=== PATIENT | female | born 1975 | race Hispanic/Latino ===

== ENCOUNTER 2017-09-21 22:11 | Emergency (ER) | payer OTHER ==
[2017-09-21] MEDS ORDERED: SODIUM CHLORIDE 0.9% 1000ML 1,000 ML IV ONE ×2 (22:45→23:37)
[2017-09-21 22:50] LABS: APPEARANCE,URINE Cloudy (CLEAR); BILIRUBIN,URINE Negative (NEGATIVE); COLOR,URINE Dark Yellow (YELLOW); GLUCOSE, URINE (UA) Negative (NEGATIVE); KETONES,URINE Trace mg/dL (NEGATIVE); LEUKOCYTE ESTERASE ,URINE Negative (NEGATIVE); NITRATE,URINE Positive (NEGATIVE); OCCULT BLOOD,URINE Moderate (NEGATIVE); PH,URINE 5.5 (5.0-8.0); PROTEIN,URINE Negative (NEGATIVE)
[2017-09-21 22:53] LABS: HCG,QUAL RESULT NEGATIVE (NEGATIVE)
[2017-09-21 22:56] LABS: BACTERIA,URINE Many /HPF (None Seen); SQUAMOUS EPITHELIAL CELL,UR Few /HPF (0-2); WBC,URINE 0-1 /HPF (0-1)
[2017-09-21] MEDS ORDERED: CEFTRIAXONE SODIUM 1 GM ONE (23:03)
[2017-09-21] MEDS ORDERED: KETOROLAC TROMETHAMINE 30MG/ML ONE (23:04)
[2017-09-21] MEDS ORDERED: SODIUM CHLORIDE 0.9% 50 ML IV ONE (23:05)
[2017-09-21 23:10] LABS: BASOPHILS % (AUTO) 0.5 % (0.0-5.0); HEMATOCRIT 35.5 % (36-48); LYMPHOCYTES % (AUTO) 40.9 % (21.0-51.0); MEAN CORPUSCULAR HEMOGLOBIN 31.1 pg (27.0-33.0); MEAN CORPUSCULAR HGB CONC 34.1 g/dL (32.0-36.0); MEAN CORPUSCULAR VOLUME 91.1 fL (79-99); MONOCYTES % (AUTO) 8.9 % (3.0-13.0); NEUTROPHILS % (AUTO) 47.7 % (40.0-77.0); PLATELET COUNT (AUTO) 251 K/uL (130-400); RED BLOOD CELL COUNT(AUTO) 3.89 MIL/uL (4.00-5.50); RED CELL DISTRIBUTION WIDTH 13.2 % (11.0-15.5); WHITE BLOOD COUNT (AUTO) 8.4 K/uL (4.8-10.8)
[2017-09-21 23:21] LABS: CREATININE 0.9 mg/dL (0.5-1.5); POTASSIUM 3.7 mmol/L (3.5-5.1)
[2017-09-21 23:26] LABS: ALBUMIN 3.8 g/dL (3.5-5.0); BILIRUBIN,TOTAL 0.3 mg/dL (0.2-1.0); TOTAL PROTEIN, SERUM 7.3 g/dL (6.0-8.3)
== END 2017-09-22 00:57 | disposition home or self-care (01) ==
LOC: EDH 22:11
DX: N10 Acute pyelonephritis (principal); R11.2 Nausea with vomiting, unspecified; Z72.0 Tobacco use
CPT/HCPCS: 36415; 80053; 81001; 81025; 85025; 96361; 96374; 96375; 99285; J0696; J1885; J7030 ×2

== ENCOUNTER 2020-09-03 10:44 | Emergency (ER) | payer SELFPAY ==
[~2020-09-03] VITALS: Ht 154.9 cm; Wt 80.7 kg
[2020-09-03 11:39] VITALS: BP 111/76
[2020-09-03 12:43] VITALS: BP 124/68
[2020-09-03] MEDS ORDERED: HYDROCODONE/ACETAMINOPHEN 5/325 MG TAB PO ONE (12:45)
[2020-09-03] MEDS ORDERED: KETOROLAC 30MG VIAL (30MG/ML) IM SCH (12:45)
[2020-09-03] MEDS ORDERED: CLINDAMYCIN HCL 150 MG CAP PO SCH (12:45)
[2020-09-03 14:03] VITALS: BP 124/75
[2020-09-03 15:40] VITALS: BP 124/73
[2020-09-03] MEDS ORDERED: ACET1TAB25 PO (16:28)
[2020-09-03] MEDS ORDERED: CLIN150C10 PO (16:28)
== END 2020-09-03 16:33 | disposition home or self-care (01) ==
LOC: EDH 10:44
DX: K04.7 Periapical abscess without sinus (principal); R11.10 Vomiting, unspecified; Z79.899 Other long term (current) drug therapy
CPT/HCPCS: 96372; 99285; J1885

== ENCOUNTER 2022-06-27 15:59 | Emergency (ER) | payer OTHER ==
[~2022-06-27] VITALS: Ht 154.9 cm; Wt 99.8 kg
[~2022-06-27 15:59] MED LIST: ACET-2079 PO; CLIN-116 PO
[2022-06-27 16:23] LABS: BASOPHILS % (AUTO) 0.5 % (0.0-5.0); EOSINOPHILS % (AUTO) 2.4 % (0.0-8.0); LYMPHOCYTES % (AUTO) 45.2 % (21.0-51.0); MEAN CORPUSCULAR HEMOGLOBIN 29.7 pg (27.0-33.0); MEAN CORPUSCULAR HGB CONC 33.1 g/dL (32.0-36.0); MEAN CORPUSCULAR VOLUME 89.7 fL (79-99); MONOCYTES % (AUTO) 9.7 % (3.0-13.0); PLATELET COUNT (AUTO) 238 K/uL (130-400); RED CELL DISTRIBUTION WIDTH 12.9 % (11.0-15.5); WHITE BLOOD COUNT (AUTO) 8.3 K/uL (4.8-10.8)
[2022-06-27 16:32] LABS: APPEARANCE,URINE CLOUDY (CLEAR); BILIRUBIN,URINE NEGATIVE (NEGATIVE); COLOR,URINE YELLOW (YELLOW); GLUCOSE, URINE (UA) NEGATIVE (NEGATIVE); KETONES,URINE NEGATIVE (NEGATIVE); LEUKOCYTE ESTERASE ,URINE 25 Leu/uL (NEGATIVE); NITRATE,URINE NEGATIVE (NEGATIVE); OCCULT BLOOD,URINE SMALL (NEGATIVE); PROTEIN,URINE NEGATIVE (NEGATIVE); UROBILINOGEN,URINE 3 mg/dL (0.2-1.0)
[2022-06-27 16:47] LABS: BACTERIA,URINE RARE /HPF (None Seen); SQUAMOUS EPITHELIAL CELL,UR FEW /HPF (0-2); YEAST,URINE BUDDING MOD /HPF (None Seen)
[2022-06-27 16:48] LABS: CREATININE 0.7 mg/dL (0.5-1.5); POTASSIUM 3.6 mmol/L (3.5-5.1)
[2022-06-27 16:51] LABS: ALBUMIN 3.9 g/dL (3.5-5.0); TOTAL PROTEIN, SERUM 7.5 g/dL (6.0-8.3)
[2022-06-27 17:05] LABS: HCG,QUALITATIVE URINE NEGATIVE (NEGATIVE)
[2022-06-27 17:13] VITALS: BP 115/85
[2022-06-27] MEDS ORDERED: KETOROLAC 30MG VIAL (30MG/ML) IM ONE (17:30)
[2022-06-27] MEDS ORDERED: TRAM50TA4 PO (18:09)
== END 2022-06-27 18:14 | disposition home or self-care (01) ==
LOC: EDH 15:59
DX: R10.9 Unspecified abdominal pain (principal); R42 Dizziness and giddiness; Z79.2 Long term (current) use of antibiotics; Z79.899 Other long term (current) drug therapy
CPT/HCPCS: 99285; 74176; 80053; 85025; 87088; 81001; 81025; 36415; 96372; J1885

== ENCOUNTER 2022-11-11 16:53 | Emergency (ER) | payer MEDICAID, OTHER ==
[~2022-11-11] VITALS: Ht 154.9 cm; Wt 80.7 kg
[~2022-11-11 16:53] MED LIST changes: +TRAM50TA4 PO
[2022-11-11 18:05] LABS: BASOPHILS # (AUTO) 0.03 K/uL (0.00-0.20); BASOPHILS % (AUTO) 0.3 % (0.0-5.0); EOSINOPHILS # (AUTO) 0.13 K/uL (0.00-0.70); EOSINOPHILS % (AUTO) 1.3 % (0.0-8.0); HEMATOCRIT 36.9 % (36-48); IMMATURE GRANULOCYTE ABSOLUTE 0.02 K/uL (0-1); LYMPHOCYTES # (AUTO) 4.2 K/uL (1.0-4.8); LYMPHOCYTES % (AUTO) 40.9 % (21.0-51.0); MEAN CORPUSCULAR HEMOGLOBIN 29.9 pg (27.0-33.0); MEAN CORPUSCULAR HGB CONC 34.1 g/dL (32.0-36.0); MEAN CORPUSCULAR VOLUME 87.6 fL (79-99); MONOCYTES # (AUTO) 0.7 K/uL (0.1-1.0); MONOCYTES % (AUTO) 6.6 % (3.0-13.0); NEUTROPHILS # (AUTO) 5.3 K/uL (1.8-7.7); NEUTROPHILS % (AUTO) 50.7 % (40.0-77.0); PLATELET COUNT (AUTO) 261 K/uL (130-400); RED BLOOD CELL COUNT(AUTO) 4.21 MIL/uL (4.00-5.50); RED CELL DISTRIBUTION WIDTH 12.7 % (11.0-15.5); WHITE BLOOD COUNT (AUTO) 10.4 K/uL (4.8-10.8)
[2022-11-11 18:07] LABS: APPEARANCE,URINE CLEAR (CLEAR); BILIRUBIN,URINE NEGATIVE (NEGATIVE); COLOR,URINE LIGHT-YELLOW (YELLOW); GLUCOSE, URINE (UA) NEGATIVE (NEGATIVE); KETONES,URINE NEGATIVE (NEGATIVE); LEUKOCYTE ESTERASE ,URINE NEGATIVE Leu/uL (NEGATIVE); NITRATE,URINE NEGATIVE (NEGATIVE); OCCULT BLOOD,URINE LARGE (NEGATIVE); PROTEIN,URINE NEGATIVE (NEGATIVE); UROBILINOGEN,URINE 0.2 mg/dL (0.2-1.0)
[2022-11-11 18:09] LABS: ADD UA MICROSCOPIC YES
[2022-11-11 18:11] LABS: BACTERIA,URINE RARE /HPF (None Seen); HCG,QUALITATIVE URINE NEGATIVE (NEGATIVE); SQUAMOUS EPITHELIAL CELL,UR RARE /HPF (0-2); UNCLASSIFIED CRYSTAL 3 /HPF (None Seen); YEAST,URINE BUDDING FEW /HPF (None Seen)
[2022-11-11 18:14] LABS: CREATININE 0.8 mg/dL (0.5-1.5); POTASSIUM 3.5 mmol/L (3.5-5.1)
[2022-11-11 18:19] LABS: ALBUMIN 4.2 g/dL (3.5-5.0); BILIRUBIN,TOTAL 0.5 mg/dL (0.2-1.0); TOTAL PROTEIN, SERUM 8.2 g/dL (6.0-8.3)
[2022-11-11] MEDS ORDERED: MACR100 PO (20:02)
[2022-11-11] MEDS ORDERED: HYDR-3421 PO (20:02)
[2022-11-11 21:10] VITALS: BP 124/68; PULSE 72; RESP 18; O2SAT 100
== END 2022-11-11 21:15 | disposition home or self-care (01) ==
LOC: EDH 16:53
DX: F41.9 Anxiety disorder, unspecified (principal); N39.0 Urinary tract infection, site not specified; Z79.899 Other long term (current) drug therapy; Z98.890 Other specified postprocedural states
CPT/HCPCS: 36415; 71045; 80053; 81001; 81025; 84484; 85025; 93005

== ENCOUNTER 2023-05-19 20:42 | Emergency (ER) | payer BC, OTHER ==
[~2023-05-19] VITALS: Ht 154.9 cm; Wt 104.3 kg
[~2023-05-19 20:42] MED LIST changes: +HYDR-3421 PO; +IBUP-2070 PO; +MACR100 PO
[2023-05-19 21:12] LABS: BASOPHILS # (AUTO) 0.04 K/uL (0.00-0.20); BASOPHILS % (AUTO) 0.3 % (0.0-5.0); EOSINOPHILS # (AUTO) 0.12 K/uL (0.00-0.70); HEMATOCRIT 35.1 % (36-48); IMMATURE GRANULOCYTE ABSOLUTE 0.03 K/uL (0-1); LYMPHOCYTES % (AUTO) 34.2 % (21.0-51.0); MEAN CORPUSCULAR HEMOGLOBIN 30.6 pg (27.0-33.0); MEAN CORPUSCULAR HGB CONC 35.3 g/dL (32.0-36.0); MEAN CORPUSCULAR VOLUME 86.7 fL (79-99); MONOCYTES # (AUTO) 0.7 K/uL (0.1-1.0); NEUTROPHILS # (AUTO) 6.8 K/uL (1.8-7.7); NEUTROPHILS % (AUTO) 58.2 % (40.0-77.0); PLATELET COUNT (AUTO) 269 K/uL (130-400); RED BLOOD CELL COUNT(AUTO) 4.05 MIL/uL (4.00-5.50); RED CELL DISTRIBUTION WIDTH 12.5 % (11.0-15.5); WHITE BLOOD COUNT (AUTO) 11.7 K/uL (4.8-10.8)
[2023-05-19] MEDS: LACTATED RINGERS 1000ML 1,000 ML IV ONE (21:23)
[2023-05-19] MEDS: KETOROLAC 30MG VIAL (30MG/ML) IVP ONE (21:23)
[2023-05-19] MEDS: ONDANSETRON 4MG INJ IVP ONE (21:23)
[2023-05-19] MEDS: MORPHINE 4 MG SYG IVP ONE (21:23)
[2023-05-19 21:24] LABS: CREATININE 0.9 mg/dL (0.5-1.5); POTASSIUM 3.4 mmol/L (3.5-5.1)
[2023-05-19 21:34] LABS: BILIRUBIN,TOTAL 0.6 mg/dL (0.2-1.0); TOTAL PROTEIN, SERUM 7.9 g/dL (6.0-8.3)
[2023-05-19 23:05] LABS: APPEARANCE,URINE CLEAR (CLEAR); BILIRUBIN,URINE NEGATIVE (NEGATIVE); COLOR,URINE LIGHT-YELLOW (YELLOW); GLUCOSE, URINE (UA) NEGATIVE (NEGATIVE); KETONES,URINE 10 mg/dL (NEGATIVE); LEUKOCYTE ESTERASE ,URINE NEGATIVE Leu/uL (NEGATIVE); NITRATE,URINE NEGATIVE (NEGATIVE); PROTEIN,URINE NEGATIVE (NEGATIVE); UROBILINOGEN,URINE 0.2 mg/dL (0.2-1.0)
[2023-05-19 23:09] LABS: ADD UA MICROSCOPIC YES
[2023-05-19 23:11] LABS: BACTERIA,URINE RARE /HPF (None Seen); MUCUS,URINE RARE LPF (None Seen); SQUAMOUS EPITHELIAL CELL,UR FEW /HPF (0-2)
[2023-05-19] MEDS ORDERED: IOHEXOL-350 75 ML VIAL IV ONE (23:13)
[2023-05-20] MEDS ORDERED: OMEP40CA21 PO (00:18)
[2023-05-20] MEDS ORDERED: DICY20TA2 PO (00:18)
[2023-05-20] MEDS ORDERED: ONDA-104 PO (00:19)
[2023-05-20 00:59] VITALS: BP 121/73; PULSE 60; RESP 18; O2SAT 98
== END 2023-05-20 01:00 | disposition home or self-care (01) ==
LOC: EDH 20:42
DX: R10.9 Unspecified abdominal pain (principal); R06.02 Shortness of breath; F41.9 Anxiety disorder, unspecified; Z79.899 Other long term (current) drug therapy; Z98.890 Other specified postprocedural states
CPT/HCPCS: 99285; 74177; 96374; 96375; 82150; 82550; 84484; 80053; 84702; 83690; 85025; 85378; 81001; 36415; 93005; J7120; J2405; J2270; J1885; Q9967

== ENCOUNTER 2023-09-25 18:47 | Emergency (ER) | payer BC, OTHER ==
[~2023-09-25] VITALS: Ht 154.9 cm; Wt 124.7 kg
[~2023-09-25 18:47] MED LIST changes: +DICY20TA2 PO; +OMEP40CA21 PO; +ONDA-104 PO
[2023-09-25 19:54] LABS: BASOPHILS # (AUTO) 0.05 K/uL (0.00-0.20); BASOPHILS % (AUTO) 0.7 % (0.0-5.0); EOSINOPHILS # (AUTO) 0.19 K/uL (0.00-0.70); EOSINOPHILS % (AUTO) 2.6 % (0.0-8.0); HEMATOCRIT 34.4 % (36-48); IMMATURE GRANULOCYTE ABSOLUTE 0.02 K/uL (0-1); LYMPHOCYTES # (AUTO) 3.2 K/uL (1.0-4.8); LYMPHOCYTES % (AUTO) 43.7 % (21.0-51.0); MEAN CORPUSCULAR HEMOGLOBIN 30.1 pg (27.0-33.0); MEAN CORPUSCULAR HGB CONC 33.7 g/dL (32.0-36.0); MEAN CORPUSCULAR VOLUME 89.4 fL (79-99); MONOCYTES # (AUTO) 0.6 K/uL (0.1-1.0); MONOCYTES % (AUTO) 8.5 % (3.0-13.0); NEUTROPHILS # (AUTO) 3.3 K/uL (1.8-7.7); NEUTROPHILS % (AUTO) 44.2 % (40.0-77.0); PLATELET COUNT (AUTO) 244 K/uL (130-400); RED BLOOD CELL COUNT(AUTO) 3.85 MIL/uL (4.00-5.50); RED CELL DISTRIBUTION WIDTH 12.7 % (11.0-15.5); WHITE BLOOD COUNT (AUTO) 7.4 K/uL (4.8-10.8)
[2023-09-25 20:04] LABS: CREATININE 0.8 mg/dL (0.5-1.0); POTASSIUM 3.9 mmol/L (3.5-5.1)
[2023-09-25 20:13] LABS: ALBUMIN 3.7 g/dL (3.5-5.0); BILIRUBIN,TOTAL 0.2 mg/dL (0.2-1.0); TOTAL PROTEIN, SERUM 7.4 g/dL (6.0-8.3)
[2023-09-25] MEDS ORDERED: KETO10TA2 PO (21:11)
[2023-09-25] MEDS: SOLU-MEDROL 125MG VIAL IVP ONE (21:54)
[2023-09-25] MEDS: KETOROLAC 30MG VIAL (30MG/ML) IVP ONE (21:54)
[2023-09-25 21:59] LABS: APPEARANCE,URINE CLEAR (CLEAR); BILIRUBIN,URINE NEGATIVE (NEGATIVE); COLOR,URINE LIGHT-YELLOW (YELLOW); GLUCOSE, URINE (UA) NEGATIVE (NEGATIVE); KETONES,URINE NEGATIVE (NEGATIVE); LEUKOCYTE ESTERASE ,URINE 75 Leu/uL (NEGATIVE); NITRATE,URINE NEGATIVE (NEGATIVE); OCCULT BLOOD,URINE SMALL (NEGATIVE); PH,URINE 6.5 (5.0-8.0); PROTEIN,URINE NEGATIVE (NEGATIVE); UROBILINOGEN,URINE 0.2 mg/dL (0.2-1.0)
[2023-09-25 22:01] LABS: ADD UA MICROSCOPIC YES
[2023-09-25 22:04] LABS: BACTERIA,URINE RARE /HPF (None Seen); MUCUS,URINE RARE LPF (None Seen); SQUAMOUS EPITHELIAL CELL,UR FEW /HPF (0-2); WBC,URINE 0-1 /HPF (0-1); YEAST,URINE BUDDING FEW /HPF (None Seen)
[2023-09-25 22:05] VITALS: BP 124/67; PULSE 68; RESP 18; O2SAT 100
== END 2023-09-25 22:25 | disposition home or self-care (01) ==
LOC: EDH 18:47
DX: M94.0 Chondrocostal junction syndrome [Tietze] (principal); R73.9 Hyperglycemia, unspecified; M79.601 Pain in right arm; Z87.442 Personal history of urinary calculi; Z79.899 Other long term (current) drug therapy; Z79.2 Long term (current) use of antibiotics
CPT/HCPCS: 99284; 96374; 71045; 96375; 84484 ×2; 80053; 85025; 87086; 81001; 36415; 93005; J2919; J1885

== ENCOUNTER 2024-02-23 22:11 | Emergency (ER) | payer BC ==
[~2024-02-23] VITALS: Ht 154.9 cm; Wt 79.8 kg
[~2024-02-23 22:11] MED LIST changes: +KETO10TA2 PO
[2024-02-23 22:44] LABS: BASOPHILS # (AUTO) 0.04 K/uL (0.00-0.20); BASOPHILS % (AUTO) 0.4 % (0.0-5.0); EOSINOPHILS # (AUTO) 0.22 K/uL (0.00-0.70); EOSINOPHILS % (AUTO) 2.1 % (0.0-8.0); HEMATOCRIT 35.3 % (36-48); IMMATURE GRANULOCYTE ABSOLUTE 0.03 K/uL (0-1); LYMPHOCYTES # (AUTO) 4.1 K/uL (1.0-4.8); LYMPHOCYTES % (AUTO) 39.3 % (21.0-51.0); MEAN CORPUSCULAR HEMOGLOBIN 30.2 pg (27.0-33.0); MEAN CORPUSCULAR HGB CONC 34.3 g/dL (32.0-36.0); MONOCYTES # (AUTO) 0.7 K/uL (0.1-1.0); NEUTROPHILS # (AUTO) 5.3 K/uL (1.8-7.7); NEUTROPHILS % (AUTO) 50.9 % (40.0-77.0); PLATELET COUNT (AUTO) 275 K/uL (130-400); RED BLOOD CELL COUNT(AUTO) 4.01 MIL/uL (4.00-5.50); RED CELL DISTRIBUTION WIDTH 12.8 % (11.0-15.5); WHITE BLOOD COUNT (AUTO) 10.5 K/uL (4.8-10.8)
[2024-02-23 22:46] LABS: APPEARANCE,URINE CLEAR (CLEAR); BILIRUBIN,URINE NEGATIVE (NEGATIVE); COLOR,URINE LIGHT-YELLOW (YELLOW); GLUCOSE, URINE (UA) NEGATIVE (NEGATIVE); KETONES,URINE NEGATIVE (NEGATIVE); LEUKOCYTE ESTERASE ,URINE 250 Leu/uL (NEGATIVE); NITRATE,URINE NEGATIVE (NEGATIVE); OCCULT BLOOD,URINE LARGE (NEGATIVE); PROTEIN,URINE 10 mg/dL (NEGATIVE)
[2024-02-23 22:49] LABS: ADD UA MICROSCOPIC YES
[2024-02-23 22:53] LABS: CREATININE 0.9 mg/dL (0.5-1.0); POTASSIUM 3.4 mmol/L (3.5-5.1)
--- NOTE | 2024-02-23 22:54 | ERN ---
General Chief Complaint: Chest Pain Stated Complaint: C/O CP WITH SOB, FEVER, VOMITING X 3 DAYS Time Seen by MD: 22:22 History of Present Illness Initial Comments Mrs Villela is a 48-year-old female with no significant past medical history who comes in today with a chief complaint of chest pain. Patient reports that she has been having increased vomiting and fever for the last 3 days. Patient states she has had this before but has not been able to figure out why. Patient denies sick contacts or CAD or CHF Allergies: Coded Allergies: No Known Drug Allergies (Unverified Allergy, Unknown, 09/03/20) Home Meds Active Scripts Ketorolac Tromethamine (Ketorolac Tromethamine) 10 Mg Tablet, 10 MG PO Q6HPRN for PAIN, #30 TAB Prov:CALVIN SAHNI [employer]ERIFFS OFFICER 09/25/23 Ondansetron HCl (Ondansetron HCl) 4 Mg Tablet, 4 MG PO TIDP PRN for VOMITING, #20 TAB Prov:MISHEL LOYOLA MD 05/20/23 Omeprazole (Omeprazole) 40 Mg Capsule.dr, 40 MG PO DAILY, #30 CAP Prov:MISHEL LOYOLA MD 05/20/23 Dicyclomine HCl (Bentyl) 20 Mg Tab, 20 MG PO TIDP PRN for PAIN, #60 TAB Prov:MISHEL LOYOLA MD 05/20/23 Ibuprofen (Ibuprofen) 600 Mg Tablet, 600 MG PO Q6H PRN for PAIN, #40 TAB 0 Refills Prov:JOHNNY HO MD 12/01/22 Hydroxyzine HCl (Hydroxyzine HCl) 25 Mg Tablet, 25 MG PO DAILY, #15 TAB Prov:SUSAN PARMAR PAC 11/11/22 Nitrofurantoin/Nitrofuran Mac (Macrobid) 100 Mg Cap, 1 CAP PO BID for 7 Days, #14 CAP 0 Refills Prov:SUSAN PARMAR PAC 11/11/22 Tramadol Hcl (Tramadol HCl) 50 Mg Tablet, 50 MG PO BID PRN for IN for 5 Days, #10 TAB Prov:SIMI CORONA DNP 06/27/22 Clindamycin HCl (Clindamycin HCl) 150 Mg Capsule, 150 MG PO L9INTOD, #28 CAP Prov:JOE COREAS MD 09/03/20 Acetaminophen with Codeine (Acetaminophen-Cod #3 Tablet) 1 Each Tablet, 1 EACH PO Q6HPRN for PAIN for 5 Days, #20 TAB 0 Refills Prov:JOE COREAS MD 09/03/20 Past Medical History Past Medical History: Unknown Past Surgical History: Unknown Family History Family History: Negative Social History Social History: Lives with family Female( History) History: Not Applicable ROS Dictation Constitutional: Positive for fever Eyes: Negative for injury, pain,redness, and discharge ENT: Negative for injury,pain or swelling Cardiovascular: Positive for chest pain Respiratory: Negative for shortness of breath, cough, and wheezing, Abdomen/GI: Positive for nausea or vomiting Back: Negative for injury and pain : Negative for injury, bleeding and discharge MS/Extremity: Negative for injury and deformity Skin: Negative for rash, and discoloration Neuro: Negative for headache, weakness, numbness, tingling, and seizure Psych: Negative for suicide ideation, homicidal ideation, and hallucinations Physical Exam Physical Exam Dictation General: awake, alert, NAD Head/Face: Normocephalic, atraumatic Eyes: PERRL, EOMI, vision at baseline ENT: oral cavity clear, Neck: Trachea midline, supple Cardiovascular: RRR, normal S1/S2, No MRGs, no JVD, pain is reproducible with palpation Respiratory: CTAB, no respiratory distress, No rales or wheezes Abdomen: Soft, non-tender, non-distended, normal bowel sounds, no guarding or rebound. Skin: Warm, dry, normal turgor, no rash MS/Extremity: Pulses equal, no cyanosis Results Laboratory and Microbiology Lab and Micro Result Laboratory Tests Test 02/23/24 22:28 02/23/24 22:36 02/23/24 22:55 02/24/24 00:42 White Blood Count 10.5 K/uL (4.8-10.8) Red Blood Count 4.01 MIL/uL (4.00-5.50) Hemoglobin 12.1 g/dL (12.0-16.0) Hematocrit 35.3 % (36-48) L Mean Corpuscular Volume 88.0 fL (79-99) Mean Corpuscular Hemoglobin 30.2 pg (27.0-33.0) Mean Corpuscular Hemoglobin Concent 34.3 g/dL (32.0-36.0) Red Cell Distribution Width 12.8 % (11.0-15.5) Platelet Count 275 K/uL (130-400) Mean Platelet Volume 11.1 fL (7.5-10.5) H Immature Granulocyte % (Auto) 0.3 % (0-1) Neutrophils (%) (Auto) 50.9 % (40.0-77.0) Lymphocytes (%) (Auto) 39.3 % (21.0-51.0) Monocytes (%) (Auto) 7.0 % (3.0-13.0) Eosinophils (%) (Auto) 2.1 % (0.0-8.0) Basophils (%) (Auto) 0.4 % (0.0-5.0) Neutrophils # (Auto) 5.3 K/uL (1.8-7.7) Lymphocytes # (Auto) 4.1 K/uL (1.0-4.8) Monocytes # (Auto) 0.7 K/uL (0.1-1.0) Eosinophils # (Auto) 0.22 K/uL (0.00-0.70) Basophils # (Auto) 0.04 K/uL (0.00-0.20) Absolute Immature Granulocyte (auto 0.03 K/uL (0-1) Nucleated Red Blood Cells 0.0 % (0.0-0.19) Sodium Level 137 mmol/L (136-145) Potassium Level 3.4 mmol/L (3.5-5.1) L Chloride Level 101 mmol/L (101-111) Carbon Dioxide Level 25 mmol/L (21-32) Blood Urea Nitrogen 14 mg/dL (7-18) Creatinine 0.9 mg/dL (0.5-1.0) Glomerular Filtration Rate Calc 80 mL/min (>90) Random Glucose 160 mg/dL (70-105) H Total Calcium 8.6 mg/dL (8.5-10.1) Total Creatine Kinase 75 U/L (21-232) B-Type Natriuretic Peptide 7 pg/mL (0-100) Urine Color LIGHT-YELLOW (YELLOW) Urine Appearance CLEAR (CLEAR) Urine pH 6.0 (5.0-8.0) Urine Specific [place] 1.021 (1.001-1.031) Urine Protein 10 mg/dL (NEGATIVE) H Urine Glucose (UA) NEGATIVE mg/dL (NEGATIVE) Urine Ketones NEGATIVE mg/dL (NEGATIVE) Urine Occult Blood LARGE (NEGATIVE) H Urine Nitrate NEGATIVE (NEGATIVE) Urine Bilirubin NEGATIVE mg/dL (NEGATIVE) Urine Urobilinogen 2.0 mg/dL (0.2-1.0) H Urine Leukocyte Esterase 250 Josh/uL (NEGATIVE) H Urine RBC 26-50 /HPF (0-1) H Urine WBC 26-50 /HPF (0-1) H Urine Squamous Epithelial Cells FEW /HPF (0-2) Urine Bacteria RARE /HPF (None Seen) Troponin I < 0.05 ng/mL (0.00-0.05) Troponin I High Sensitivity < 4 ng/L (4-50) L MDM Patient was had 2 negative troponins. Pain is reproducible likely musculoskeletal in nature. MDM: Differential diagnosis: Noncardiac chest pain Rationale: Tests considered and ordered secondary to shared decision making include: Previous outside records reviewed: Old ER visits. Risk of complication and/or morbidity or mortality of patient management: None Medications-Per medication reconciliation Need for hospitalization: Patient does not meet criteria for hospitalization. Need for emergency major/minor surgery: No There are no social concerns with this patient. Prescription drug management Prescriptions will include symptomatic care Patient's prior external medical records from other ER visits were reviewed by me as indicated. Prior testing and results from previous visits were reviewed. Prior tests were taken into account with medical decision making and resource utilization, independent historian/historians were used to obtain complete medical history. I independently interpreted the test that were performed, results were reviewed by me and considered findings on radiology if ordered. Medical management and examination interpretation discussions were had by me with other qualified healthcare professionals as indicated for the patient's care. ED Course Orders Procedure Category Date Status Time Vital Signs Per CPOE 02/23/24 Transmitted Routine 22:17 B-Type Natriuretic LAB 02/23/24 Complete Peptide 22:17 Chest 1vw RAD 02/23/24 Taken 22:17 12 Lead Ekg Tracing- EKG 02/23/24 Logged Technical 22:17 Oxygen By Nc/Pulse Ox CPOE 02/23/24 Transmitted 22:17 Maintain Iv CPOE 02/23/24 Transmitted 22:17 Iv Insertion CPOE 02/23/24 Transmitted 22:17 Cardiac Monitoring CPOE 02/23/24 Transmitted 22:17 Pulse Oximetry With CPOE 02/23/24 Transmitted Vs And Prn 22:17 Cbc With Differential LAB 02/23/24 Complete 22:17 Activity: Br W/Brp CPOE 02/23/24 Transmitted With Assist 22:17 Creatine Kinase, Total LAB 02/23/24 Complete 22:17 Urinalysis Profile LAB 02/23/24 Complete 22:17 Troponin Poc Order LAB 02/23/24 Complete Only 22:17 Bedside Troponin-I LAB.ER 02/23/24 In Process (Poc) 22:17 Basic Metabolic Panel LAB 02/23/24 Complete 22:17 Culture Urine NAYANA 02/23/24 In Process 22:36 Ceftriaxone 2gm Vial PHA 02/24/24 In Process (Rocephin 2gm Inj) 00:30 Troponin I High LAB 02/24/24 Complete Sensitivity 00:39 Current Medications Medications (Trade) Dose Ordered Sig/Shari Route PRN Reason Start Time Stop Time Status Last Admin Dose Admin Ceftriaxone Sodium (Rocephin 2gm Inj) 2 gm ONCE ONCE IVPB 02/24/24 00:30 02/24/24 00:31 02/24/24 00:57 Vital Signs Date Time Temp Pulse Resp B/P (MAP) Pulse Ox O2 Delivery O2 Flow Rate FiO2 02/24/24 00:39 62 16 101/55 100 Room Air* 0 21 02/23/24 22:37 98.2 66 16 118/67 100 Room Air* 0 21 02/23/24 22:18 99.0 73 20 127/69 100 Room Air DX & DISP Disposition: Discharge Departure Impression: Primary Impression: Non-cardiac chest pain Condition: Stable Additional Instructions: Please follow up with your primary care physician in the next 1-7 days for further evaluation and care. Referrals: PATI ALAS DO (PCP) MONA CASEY MD Feb 23, 2024 22:54
[2024-02-23 22:56] LABS: BACTERIA,URINE RARE /HPF (None Seen); MUCUS,URINE RARE LPF (None Seen); RBC,URINE 26-50 /HPF (0-1); SQUAMOUS EPITHELIAL CELL,UR FEW /HPF (0-2); WBC,URINE 26-50 /HPF (0-1)
[2024-02-23 23:04] LABS: B-TYPE NATRIURETIC PEPTIDE 7 pg/mL (0-100)
[2024-02-24] MEDS: CEFTRIAXONE 2GM VIAL IVPB ONE (00:57)
[2024-02-24] MEDS: ketOROlac 15MG/ML VIAL (15MG/ML) IV ONE (02:01)
[2024-02-24 02:07] VITALS: BP 110/65; PULSE 70; RESP 18; TEMP 98.5; O2SAT 100
--- NOTE | 2024-02-24 06:59 | EKG ---
[facility] Test Date: 2024-02-23 Test Time: 22:14:43 Pat Name: RAF HUMPHREY Department: ED Room: Gender: F Still Operator Gin: 0991 : 1975 Requested By: MONA CASEY Order Number: [id number] Reading MD: John Machado Measurements Intervals [place] Rate: 68 P: 11 [place]: 184 QRS: 0 QRSD: 81 T: 6 QT: 409 QTc: 435 Interpretive Statements Sinus rhythm Compared to ECG 09/25/2023 18:43:39 No significant changes Electronically Signed On 02-24-2024 15:11:21 LINE LEADER by John Machado Please click the below link to view image of tracing.
--- NOTE | 2024-02-24 08:44 | HMCIMG ---
CHEST 1VW REASON: CHEST PAIN COMPARISON: 09/25/2023 FINDINGS: Single view of the chest was obtained. Lungs are clear. Heart size is normal. There is no pulmonary vascular congestion. Mediastinum and bony thorax appear unremarkable. IMPRESSION: 1. Normal single view chest x-ray.
== END 2024-02-24 02:09 | disposition home or self-care (01) ==
LOC: EDH 22:11
DX: R07.89 Other chest pain (principal); Z79.899 Other long term (current) drug therapy
CPT/HCPCS: 99284; 71045; 82550; 84484 ×2; 80048; 83880; 85025; 87086 ×2; 87186; 81001; 36415; 93005; 96365; 96375; J0696; J1885

== ENCOUNTER 2024-10-25 01:57 | Emergency (ER) | payer BC ==
[~2024-10-25] VITALS: Ht 154.9 cm; Wt 106.6 kg
--- NOTE | 2024-10-25 01:59 | NUR ---
FLU AND COVID SWABS COLLECTED AND SENT
[2024-10-25 02:23] LABS: SARS-CoV-2, RNA, NAAT POSITIVE SARS CoV-2 (NEGATIVE)
[2024-10-25 02:28] LABS: INFLUENZA TYPE A Negative For Type A (NEGATIVE); INFLUENZA TYPE B Negative For Type B (NEGATIVE)
[2024-10-25] MEDS ORDERED: LACTATED RINGERS 1000ML IV STA (02:34)
--- NOTE | 2024-10-25 02:47 | ERN ---
General Chief Complaint: Flu Symptoms Stated Complaint: BODYACHES, FEVER Time Seen by MD: 02:02 Source: patient History of Present Illness Initial Comments 48-year-old female who comes in with 3-4 days of fever malaise cough body aches chills and diarrhea. Timing/Duration: 1 week Severity: moderate Allergies: Coded Allergies: No Known Drug Allergies (Unverified Allergy, Unknown, 09/03/20) Home Meds Active Scripts Ketorolac Tromethamine (Ketorolac Tromethamine) 10 Mg Tablet, 10 MG PO Q6HPRN for PAIN, #30 TAB Prov:CALVIN SAHNI BREASTFEEDING EDUCATOR 09/25/23 Ondansetron HCl (Ondansetron HCl) 4 Mg Tablet, 4 MG PO TIDP PRN for VOMITING, #20 TAB Prov:MISHEL LOYOLA MD 05/20/23 Omeprazole (Omeprazole) 40 Mg Capsule.dr, 40 MG PO DAILY, #30 CAP Prov:MISHEL LOYOLA MD 05/20/23 Dicyclomine HCl (Bentyl) 20 Mg Tab, 20 MG PO TIDP PRN for PAIN, #60 TAB Prov:MISHEL LOYOLA MD 05/20/23 Ibuprofen (Ibuprofen) 600 Mg Tablet, 600 MG PO Q6H PRN for PAIN, #40 TAB 0 Refills Prov:JOHNNY HO MD 12/01/22 Hydroxyzine HCl (Hydroxyzine HCl) 25 Mg Tablet, 25 MG PO DAILY, #15 TAB Prov:SUSAN PARMAR PAC 11/11/22 Nitrofurantoin/Nitrofuran Mac (Macrobid) 100 Mg Cap, 1 CAP PO BID for 7 Days, #14 CAP 0 Refills Prov:SUSAN PARMAR PAC 11/11/22 Tramadol Hcl (Tramadol HCl) 50 Mg Tablet, 50 MG PO BID PRN for IN for 5 Days, #10 TAB Prov:SIMI CORONA DNP 06/27/22 Clindamycin HCl (Clindamycin HCl) 150 Mg Capsule, 150 MG PO [id number], #28 CAP Prov:JOE COREAS MD 09/03/20 Acetaminophen with Codeine (Acetaminophen-Cod #3 Tablet) 1 Each Tablet, 1 EACH PO Q6HPRN for PAIN for 5 Days, #20 TAB 0 Refills Prov:JOE COREAS MD 09/03/20 Past Medical History Past Medical History: No Pertinent History Past Surgical History: None Family History Family History: Negative Social History Social History: Lives with family Female( History) History: Not Applicable Constitutional: (+) chills, (+) fever, (+) malaise, (+) weakness EENTM: (-) eye pain, (-) blurred vision, (-) tearing, (-) double vision, (-) ear pain, (-) ear discharge, (-) nose pain, (-) nose congestion, (-) throat pain, (-) Throat swelling, (-) mouth pain, (-) tooth pain, (-) mouth swelling, (-) other documentation Respiratory: (+) cough, (+) short of breath Cardiovascular: (-) chest pain, (-) edema, (-) palpitations, (-) syncope, (-) dyspnea on exertion, (-) other documentation Gastrointestinal/Abdominal: (+) diarrhea Genitourinary: (-) vaginal discharge, (-) vaginal bleeding, (-) dysuria, (-) frequency, (-) hematuria, (-) pain, (-) other documentation Musculoskeletal: (-) Neck pain, (-) back pain, (-) Flank Pain, (-) joint pain, (-) joint swelling, (-) muscle pain, (-) muscle stiffness, (-) gout, (-) other documentation Physical Exam General Appearance: (+) moderate distress Orientation: (+) alert, (+) oriented x 3 Head/Face Trauma: No Eye: bilateral eye normal inspection, bilateral eye PERRL, bilateral eye EOMI, bilateral eye normal Fundi, bilateral eye abnormal pupil Ear, Nose, Throat: (+) hearing grossly normal, (+) normal ENT inspection, (+) normal pharynx Neck: (+) normal inspection, (+) supple Respiratory: (+) chest non-tender, (+) lungs clear, (+) well ventilated Heart: (+) regular Vascular: (+) no edema, (+) normal peripheral pulse Gastrointestinal: (+) soft, (+) non-tender, (+) bowel sound present Results Laboratory and Microbiology Lab and Micro Result Laboratory Tests Test 10/25/24 01:59 Influenza Type A Antigen Negative For Type A Influenza Type B Antigen Negative For Type B SARS-CoV-2, RNA, NAAT POSITIVE SARS CoV-2 MDM MDM: Differential diagnosis: Most likely the patient has flu. But we will get a chest x-ray CBC BMP in addition to the normal throat swabs. Rationale: Tests considered and ordered secondary to shared decision making include: Previous outside records reviewed: Old ER visits. Risk of complication and/or morbidity or mortality of patient management: None Medications-Per medication reconciliation Need for hospitalization: Patient does meet criteria for hospitalization. Need for emergency major/minor surgery: No There are no social concerns with this patient. Prescription drug management Prescriptions will include symptomatic care Patient's prior external medical records from other ER visits were reviewed by me as indicated. Prior testing and results from previous visits were reviewed. Prior tests were taken into account with medical decision making and resource utilization, independent historian/historians were used to obtain complete medical history. I independently interpreted the test that were performed, results were reviewed by me and considered findings on radiology if ordered. Patient's nasal swabs come back positive for COVID. Chest x-ray is negative for any consolidations or fluid collections or obvious infiltrates. There maybe some stranding in her left upper lobe this is present on an earlier chest x-ray. The CBC and chemistry panel are still pending although we have the diagnosis. I will discharge the patient home on Paxlovid. ED Course Orders Procedure Category Date Status Time Covid Rna Naat LAB 10/25/24 Complete 01:59 Influenza Type A & B, LAB 10/25/24 Complete Rapid 01:59 Cbc With Differential LAB 10/25/24 Logged 02:34 Basic Metabolic Panel LAB 10/25/24 Logged 02:34 Lactated Ringers PHA 10/25/24 Complete 1000ml (Lactated 02:34 Chest 1vw RAD 10/25/24 Resulted 02:34 Current Medications Medications (Trade) Dose Ordered Sig/Shari Route PRN Reason Start Time Stop Time Status Last Admin Dose Admin Lactated Ringer's (Lactated Ringers 1000ml) 1,000 ml BOLUS STAT IV 10/25/24 02:34 10/25/24 02:37 DC Vital Signs Date Time Temp Pulse Resp B/P (MAP) Pulse Ox O2 Delivery O2 Flow Rate FiO2 10/25/24 01:58 99.9 93 18 124/67 97 Room Air DX & DISP Disposition: Discharge Departure Impression: Primary Impression: COVID Condition: Stable Scripts Nirmatrelvir/Ritonavir (Paxlovid 300-100 mg Dose Pack) 300 Mg (150 Mg X 2)-100 Mg Tab.ds.pk 1 EACH PO BID, #10 TAB Prov: NEHAL VALDIVIA MD 10/25/24 Additional Instructions: You have COVID there are no antibiotics that can treat this there are antivirals and I have sent a prescription to your pharmacy. Please return if you find yourself unable to stay well hydrated and unable to eat after a day or two. You should start to feel better by the end of the week. Referrals: PATI ALAS DO (PCP) NEHAL VALDIVIA MD Oct 25, 2024 02:46
--- NOTE | 2024-10-25 03:25 | HMCIMG ---
EXAM: CR Chest, 1 view. CLINICAL HISTORY: Cough, flu. COMPARISON: Chest x-ray dated 02/23/24. FINDINGS: Poor inspiratory effort. The lungs show no infiltrate or other acute findings. No pleural effusion or pneumothorax. The cardiomediastinal silhouette is within normal limits. No acute osseous abnormality. IMPRESSION: No acute cardiopulmonary pathology is evident. No gross interval changes. /[place]
--- NOTE | 2024-10-25 03:52 | NUR ---
DR VALDIVIA WITH PATIENT
[2024-10-25] MEDS ORDERED: NIRM1TAB9 PO (04:05)
[2024-10-25 04:18] VITALS: BP 127/75; PULSE 86; RESP 18; TEMP 99.7; O2SAT 100
== END 2024-10-25 04:27 | disposition home or self-care (01) ==
LOC: EDH 01:57
DX: U07.1 COVID-19 (principal); Z79.899 Other long term (current) drug therapy
CPT/HCPCS: 71045; 87635; 87804; 99283